=== PATIENT | female | born 1985 | race Two or more races ===

== ENCOUNTER 2025-01-19 07:51 | Inpatient (IN) | payer MEDICAID ==
[2025-01-17 14:30] LABS: Hematocrit 41.0 % (36.0-46.0); Hemoglobin 13.8 g/dL (12.2-16.2); Mean Corpuscular Hemoglobin 28.6 pg (28.0-32.0); Mean Corpuscular Volume 84.7 fL (80.0-100.0); Nucleated Red Blood Cells % 0.0 %
[2025-01-17 14:43] LABS: INR 1.01 (0.9-1.15); Partial Thromboplastin Time 26.9 SEC (24.5-34.5); Prothrombin Time 10.7 sec (9.3-11.8); Urine Protein, UAD Negative (Negative)
[2025-01-17 14:57] LABS: Alanine Aminotransferase 18 U/L (7-40); Albumin 4.6 g/dL (3.2-4.8); Alkaline Phosphatase 54 U/L (46-116); Anion Gap 10 (5-15); BUN/Creatinine Ratio 10.4 (10.0-20.0); Calcium 9.2 mg/dL (8.7-10.4); Carbon Dioxide 26 mmol/L (20-31); Chloride 103 mmol/L (98-107); Glucose 80 mg/dL (74-106); Potassium 3.9 mmol/L (3.5-5.1); Sodium 139 mmol/L (136-145); Total Protein 7.5 g/dL (5.7-8.2)
[2025-01-17 14:58] LABS: Bilirubin, Total 0.5 mg/dL (0.2-1.0)
[2025-01-17 14:59] LABS: Blood Urea Nitrogen 7 mg/dL (9-23)
[2025-01-17 15:45] VITALS: BP 122/74; PULSE 78; RESP 14; TEMP 99; O2SAT 78; O2SAT 98
[~2025-01-19] VITALS: Ht 160 cm; Wt 90.3 kg
[2025-01-19] MEDS: ceFAZolin 2 GM/D5W50ml 50 ML IV ONE (09:40)
[2025-01-19] MEDS ORDERED: PROPOFOL 10 MG/ML 20 ML IV ONE (10:44)
[2025-01-19] MEDS ORDERED: KETOROLAC TROMETH 30 MG/ML 1ML VIAL ONE (10:44)
[2025-01-19] MEDS ORDERED: MIDAZOLAM HCL 2MG/2ML 2ml VIAL (1mg/ml) ONE (10:44)
[2025-01-19] MEDS ORDERED: LIDOCAINE 2% (LOCAL ANESTH.) PF 5ml SDV ONE (10:44)
[2025-01-19] MEDS ORDERED: GLYCOPYRROLATE 0.2 MG/ML 1ML VIAL ONE (10:44)
[2025-01-19] MEDS ORDERED: fentaNYL CITRATE 100 MCG/2 ML VL ONE (10:44)
[2025-01-19] MEDS ORDERED: ONDANSETRON HCL 4 MG/2 ML VIAL ONE (10:44)
[2025-01-19] MEDS ORDERED: HYDROmorphone HCL 2 MG/ML VL/or syr ONE (10:44)
[2025-01-19] MEDS: LIDOCAINE W/ EPINEPHRINE 1% 20ML VIAL ONE (12:00)
[2025-01-19] MEDS: BUPIVACAINE 0.25% INJ 50ML VIAL ONE (12:00)
[2025-01-19] MEDS: SOD CHL 0.45% WITH 20MEQ KCL 1,000 ML IV SCH (12:30)
[2025-01-19 12:42] VITALS: PULSE 100; RESP 11; O2SAT 98
[2025-01-19] MEDS ORDERED: ONDANSETRON HCL 4 MG/2 ML VIAL IV PRN (13:00)
[2025-01-19] MEDS: ACETAMINOPHEN IV 1000 MG/100ML (10MG/ML) IV ONE (13:00)
[2025-01-19] MEDS ORDERED: NITROGLYCERIN 0.4 MG SL TAB SL PRN (13:15)
[2025-01-19] MEDS ORDERED: MORPHINE SULFATE INJ 2 MG/ml SYRG IV PRN (13:15)
--- NOTE | 2025-01-19 13:33 | DVHOP ---
DATE OF SURGERY: 01/19/2025 PREOPERATIVE DIAGNOSES: * Cholelithiasis. * Cholecystitis. POSTOPERATIVE DIAGNOSES: * Cholelithiasis. * Cholecystitis. SURGEON: Zain Rojas MD HEAD CAGER SURGEON: Nain Sanchez NP ANESTHESIA: General endotracheal. ANESTHESIOLOGIST: Dr. Thompson. PROCEDURES: * Laparoscopy. * Laparoscopic cholecystectomy. DESCRIPTION OF PROCEDURE: Under general endotracheal anesthesia with the patient's skin prepped and draped, a supraumbilical incision was made and Veress needle inserted into the peritoneal cavity by the hanging drop technique in order to establish pneumoperitoneum to 15 mmHg pressure by insufflation with carbon dioxide. With the abdomen fully distended, the needle was removed and replaced with a 5 mm trocar port through which a 0-degree viewing laparoscope was inserted and under direct vision, 5 and 10 mm ports inserted through the right anterior axillary line at the level of the umbilicus and through the subxiphoid midline skin respectively. Instrumentation was then introduced. Laparoscopy was conducted and revealed no unexpected pathology on the serosal surfaces visualized. The gallbladder was densely distended and was aspirated of bile and contained numerous visible stones through the wall of the gallbladder. The gallbladder was then placed on tension cephalad. The cystic duct and cystic artery were identified, circumferentially dissected, skeletonized, and traced into the hepatocystic triangle to minimize the potential for inadvertent injury to the common bile duct. The cystic duct and cystic artery were then divided between metallic clips close to the gallbladder and subsequently, the gallbladder was resected from its almost entirely intrahepatic position. Due to the intrahepatic nature of the gallbladder, there was some denuding of the liver parenchyma for which reason ultimately a 10 mm Erasmo-Sandoval drain was placed underneath the right lobe of the liver and exteriorized through the 5 mm port site. The gallbladder then was fully mobilized and placed into a specimen extraction bag, which was withdrawn from the peritoneal cavity through the 10 mm subxiphoid port site. The right upper quadrant was profusely irrigated. Irrigant was aspirated. Hemostasis was meticulously accomplished and found to be complete at the termination of the procedure. There was no evidence of bleeding from either the port sites or from the liver bed. The subhepatic space having been drained by the 10 mm drain, instrumentation was withdrawn. Pneumoperitoneum was evacuated. Fascia defect closed using 0 Vicryl. The wounds were approximated using Monocryl sutures and Dermabond glue with Steri-Strips. The patient remained stable throughout the procedure, left the operating room following an accurate needle and sponge count. The patient's was thoroughly informed in the waiting area. MD VESNA Martinez/CANDICE TID: [id number] RECEIPT: [id number]
[2025-01-19] MEDS ORDERED: ceFAZolin 1GM/50ML 50 ML IV SCH (14:00)
[2025-01-19] MEDS: diphenhdrAMINE HCL 50 MG/1 ML VL IV ONE (14:02)
[2025-01-19] MEDS: diphenhdrAMINE HCL 50 MG/1 ML VL ONE (14:03)
[2025-01-19] MEDS ORDERED: HYDROcodone-ACET 5/325MG TAB PO PRN (14:45)
--- NOTE | 2025-01-19 14:45 | DVHHP2 ---
Review of Systems Allergies: Coded Allergies: NO KNOWN ALLERGIES (Unverified , 01/18/25) Medications Current Medications Medications Dose Ordered Sig/Johnny Route Start Time Stop Time Status Last Admin Dose Admin Potassium Chloride/Sodium Chloride 1,000 ml @ 100 mls/hr Q10H IV 01/19/25 12:30 Cefazolin Sodium 50 ml @ 100 mls/hr Q8HR IV 01/19/25 14:00 Metronidazole 100 ml @ 100 mls/hr Q8HR IV 01/19/25 14:00 Hydromorphone HCl 1 mg Q3HPRN PRN IV 01/19/25 12:30 Nitroglycerin 0.4 mg Q5MINP PRN SL 01/19/25 13:15 Morphine Sulfate 2 mg Q30M PRN IV 01/19/25 13:15 Exam Vital Signs Vital Signs Date Time Temp Pulse Resp B/P (MAP) Pulse Ox O2 Delivery O2 Flow Rate FiO2 01/19/25 10: 97.8 64 17 126/86 (99) 99 97.8 Labs/Xrays Labs Test 01/17/25 14:20 Range/Units White Blood Count 8.5 4.4-10.8 10^3/uL Red Blood Count 4.84 4.0-5.20 10^6/uL Hemoglobin 13.8 12.2-16.2 g/dL Hematocrit 41.0 36.0-46.0 % Mean Corpuscular Volume 84.7 80.0-100.0 fL Mean Corpuscular Hemoglobin 28.6 28.0-32.0 pg Mean Corpuscular Hemoglobin Concent 33.7 32.0-36.0 g/dL Red Cell Distribution Width 12.7 11.8-14.3 % Platelet Count 322 140-450 10^3/uL Mean Platelet Volume 7.8 6.9-10.8 fL Neutrophils (%) (Auto) 56.2 37.0-80.0 % Lymphocytes (%) (Auto) 37.2 10.0-50.0 % Monocytes (%) (Auto) 4.5 0.0-12.0 % Eosinophils (%) (Auto) 1.5 0.0-7.0 % Basophils (%) (Auto) 0.6 0.0-2.0 % Neutrophils # (Auto) 4.8 1.6-8.6 10 ^3/uL Lymphocytes # (Auto) 3.2 0.4-5.4 10 ^3/uL Monocytes # (Auto) 0.4 0-1.3 10 ^3/uL Eosinophils # (Auto) 0.1 0-0.8 10 ^3/uL Basophils # (Auto) 0 0-0.2 10 ^3/uL Nucleated Red Blood Cells 0.0 % Prothrombin Time 10.7 9.3-11.8 sec Prothrombin Time INR 1.01 0.9-1.15 Activated Partial Thromboplast Time 26.9 24.5-34.5 SEC Urine Color Light-yellow Yellow Urine Clarity Turbid H Clear Urine pH 5.5 5.0-9.0 Urine Specific [place] 1.012 1.001-1.035 Urine Protein Negative Negative Urine Ketones 1+ H Negative Urine Blood Trace H Negative /uL Urine Nitrite Negative Negative Urine Bilirubin Negative Negative Urine Urobilinogen Normal Negative mg/dL Urine Leukocyte Esterase 1+ Negative /uL Urine RBC 1 0 - 4 /hpf Urine Microscopic WBC 1 0-5 /HPF Urine Squamous Epithelial Cells Mod <5 /hpf Urine Bacteria None seen None Seen /hpf Urine Glucose Normal Normal mg/dL Urine Test Negative Negative Sodium Level 139 136-145 mmol/L Potassium Level 3.9 3.5-5.1 mmol/L Chloride Level 103 98-107 mmol/L Carbon Dioxide Level 26 20-31 mmol/L Anion Gap 10 5-15 Blood Urea Nitrogen 7 L 9-23 mg/dL Creatinine 0.67 0.550-1.02 mg/dL Glomerular Filtration Rate Calc 113 >90 mL/min BUN/Creatinine Ratio 10.4 10.0-20.0 Serum Glucose 80 74-106 mg/dL Calcium Level 9.2 8.7-10.4 mg/dL Total Bilirubin 0.5 0.2-1.0 mg/dL Aspartate Amino Transferase (AST) 20 13-40 U/L Alanine Aminotransferase (ALT) 18 7-40 U/L Alkaline Phosphatase 54 46-116 U/L Total Protein 7.5 5.7-8.2 g/dL Albumin 4.6 3.2-4.8 g/dL SEPSIS Sepsis Screen Physician Orders To Pacu For Recovery (01/19/25 12:25) Oxygen Via Cool Mist Mask (01/19/25 12:25) Abdominal Binder (01/19/25 12:25) Isaac To Bulb Suction (01/19/25 12:25) Clear Liq Diet (01/19/25 Lunch) Bilirubin, Total (01/20/25 04:00) Incentive Spirometry Q 1hr (01/19/25 12:25) Ambulate Every 4hours Q4H (01/19/25 12:25) Page Hospitalist For Admission (01/19/25 12:25) Sod Chl 0.45% With 20meq Kcl (01/19/25 12:30) Cefazolin 1gm/50ml (Ancef) (01/19/25 14:00) Metronidazole 500mg/100ml (Flagyl 500mg/ (01/19/25 14:00) Hydromorphone Injection (Dilaudid Inject (01/19/25 12:30) Oxygen By Face Mask (01/19/25 12:48) On Site Wastewater Systems Technician (01/19/25 12:48) Notify Anesth. For Changes: (01/19/25 12:48) Pulse Ox Assessment (01/19/25 12:48) May Have Head Of Bed Up (01/19/25 12:48) Continue Present Iv (01/19/25 12:48) Discharge To Room Per Criteria (01/19/25 12:48) Admit (01/19/25 13:07) Oxygen By Nasal Cannula (01/19/25 13:07) Nitroglycerin Sublingual (Ntrostat Subli (01/19/25 13:15) Morphine Sulfate Injection (01/19/25 13:15) Stat Ekg For Chest Pain (01/19/25 13:07) Notify Md Of Changes From Base (01/19/25 13:07) Emergency Dysrhythmia Protocol (01/19/25 13:07) Rhythm Strips Once Every Shift (01/19/25 13:07) Hydrocodone-Acet 5/325mg Tab ([place] 5/32 (01/19/25 14:45) Complete Blood Count (01/20/25 06:00) Comprehensive Metabolic Panel (01/20/25 06:00) Vital Signs Date Time Temp Pulse Resp B/P (MAP) Pulse Ox O2 Delivery O2 Flow Rate FiO2 01/19/25 10:25 97.8 64 17 126/86 (99) 99 97.8 Medications Medications Dose Ordered Sig/Johnny Route Start Time Stop Time Status Last Admin Dose Admin Bupivacaine HCl 50 ml STK-MED ONCE .ROUTE 01/19/25 10:57 01/19/25 10:53 DC 01/19/25 12:00 10 ML Lidocaine/ Epinephrine 20 ml STK-MED ONCE .ROUTE 01/19/25 10:57 01/19/25 10:53 DC 01/19/25 12:00 10 ML Assessment/Plan Assessment/Plan SEE DICTATED NOTE Plan discussed with: Patient My Orders Orders - RACHEL FRANKLIN MD Procedure Category Date Status Time Admit ADMIT 01/19/25 Transmitted 13:07 Oxygen By Nasal RT 01/19/25 Transmitted Cannula 13:07 Nitroglycerin PHA 01/19/25 In Process Sublingual (Ntrostat 13:15 Morphine Sulfate PHA 01/19/25 In Process Injection 13:15 Stat Ekg For Chest MARIE 01/19/25 In Process Pain 13:07 Notify Md Of Changes [facility] 01/19/25 In Process From Base 13:07 Emergency Dysrhythmia MARIE 01/19/25 In Process Protocol 13:07 Rhythm Strips Once [facility] 01/19/25 In Process Every Shift 13:07 Hydrocodone-Acet PHA 01/19/25 Verified 5/325mg Tab ([place] 14:45 Complete Blood Count LAB 01/20/25 Verified 06:00 Comprehensive LAB 01/20/25 Verified Metabolic Panel 06:00 Date of Service: Jan 19, 2025 Billing Provider: RACHEL FRANKLIN MD Common Visit Codes: [id number] INP/OBS CARE (HIGH) RACHEL FRANKLIN MD Jan 19, 2025 14:44
--- NOTE | 2025-01-19 14:59 | DVHHP ---
ADMIT DATE: 01/19/2025 HISTORY OF PRESENT ILLNESS: The patient is a 39-year-old lady who underwent laparoscopic cholecystectomy for cholelithiasis and chronic cholecystitis. The patient at this time denies any significant pain. No chest pain. No shortness of breath. No nausea or vomiting. REVIEW OF SYSTEMS: Review of rest systems otherwise currently negative. PAST MEDICAL HISTORY: No significant illness in the past. MEDICATIONS: She takes no medicine on a regular basis. ALLERGIES: No known drug allergies. SOCIAL HISTORY: Denies smoking or alcohol. FAMILY HISTORY: Negative. PHYSICAL EXAMINATION: GENERAL: The patient is awake and alert. VITAL SIGNS: Temperature 97.8, pulse 64 per minute, blood pressure 126/86. SHEENT: Unremarkable. There is no JVD. No pedal edema. LUNGS: Equal bilaterally. No added sounds. CARDIOVASCULAR: S1, S2 is regular without murmurs. ABDOMEN: Soft. Bowel sounds are hypoactive. NEUROLOGICAL: Nonfocal. MUSCULOSKELETAL: Normal. ASSESSMENT AND PLAN: * Obesity. * Status post laparoscopic cholecystectomy for cholelithiasis and chronic cholecystitis. The patient will be placed on IV fluids along with pain medications. MD TOBIAS Luna/PEPPER TID: [id number] RECEIPT: [id number]
[2025-01-19] MEDS: FAMOTIDINE (10MG/ML) 2ML VL IV ONE ×2 (15:01→15:02)
[2025-01-19] MEDS: HYDROmorphone HCL 2 MG/ML VL/or syr IV PRN ×2 (15:29→19:24)
[2025-01-19 15:56] VITALS: PULSE 61; RESP 18; O2SAT 95
[2025-01-19] MEDS: ceFAZolin 1GM/50ML 50 ML IV SCH (19:01)
[2025-01-19 20:00] VITALS: PULSE 65; RESP 16
[2025-01-19 21:00] VITALS: BP 132/70; PULSE 65; RESP 20; TEMP 98.4; O2SAT 96
[2025-01-20 01:00] VITALS: BP 108/64; PULSE 63; RESP 18; TEMP 97.9; O2SAT 94
[2025-01-20 05:00] VITALS: BP 112/64; PULSE 66; RESP 18; TEMP 98; O2SAT 95
[2025-01-20 06:27] LABS: Hematocrit 38.3 % (36.0-46.0); Hemoglobin 12.9 g/dL (12.2-16.2); Mean Corpuscular Hemoglobin 28.5 pg (28.0-32.0); Mean Corpuscular Volume 84.6 fL (80.0-100.0); Nucleated Red Blood Cells % 0.0 %
[2025-01-20 06:40] LABS: Alanine Aminotransferase 43 U/L (7-40); Albumin 3.8 g/dL (3.2-4.8); Alkaline Phosphatase 49 U/L (46-116); Anion Gap 9 (5-15); BUN/Creatinine Ratio 11.1 (10.0-20.0); Bilirubin, Total 0.5 mg/dL (0.2-1.0); Blood Urea Nitrogen 6 mg/dL (9-23); Calcium 8.8 mg/dL (8.7-10.4); Carbon Dioxide 25 mmol/L (20-31); Chloride 106 mmol/L (98-107); Glucose 104 mg/dL (74-106); Potassium 4.1 mmol/L (3.5-5.1); Sodium 140 mmol/L (136-145); Total Protein 6.4 g/dL (5.7-8.2)
[2025-01-20 08:00] VITALS: PULSE 58; RESP 16; O2SAT 96
[2025-01-20 08:32] VITALS: BP 123/72; PULSE 58; RESP 16; TEMP 97.5; O2SAT 96
--- NOTE | 2025-01-20 12:28 | DVHDS2 ---
Discharge Summary Date of Admission Jan 19, 2025 at 13:07 Date of Discharge: Jan 20, 2025 Labs/Diagnostic Data: Laboratory Results Test 01/20/25 04:53 01/19/25 17:06 01/17/25 14:20 White Blood Count 16.6 10^3/uL (4.4-10.8) Red Blood Count 4.53 10^6/uL (4.0-5.20) Hemoglobin 12.9 g/dL (12.2-16.2) Hematocrit 38.3 % (36.0-46.0) Mean Corpuscular Volume 84.6 fL (80.0-100.0) Mean Corpuscular Hemoglobin 28.5 pg (28.0-32.0) Mean Corpuscular Hemoglobin Concent 33.7 g/dL (32.0-36.0) Red Cell Distribution Width 12.6 % (11.8-14.3) Platelet Count 312 10^3/uL (140-450) Mean Platelet Volume 8.3 fL (6.9-10.8) Neutrophils (%) (Auto) 82.8 % (37.0-80.0) Lymphocytes (%) (Auto) 13.2 % (10.0-50.0) Monocytes (%) (Auto) 3.9 % (0.0-12.0) Eosinophils (%) (Auto) 0.0 % (0.0-7.0) Basophils (%) (Auto) 0.1 % (0.0-2.0) Neutrophils # (Auto) 13.7 10 ^3/uL (1.6-8.6) Lymphocytes # (Auto) 2.2 10 ^3/uL (0.4-5.4) Monocytes # (Auto) 0.6 10 ^3/uL (0-1.3) Eosinophils # (Auto) 0 10 ^3/uL (0-0.8) Basophils # (Auto) 0 10 ^3/uL (0-0.2) Nucleated Red Blood Cells 0.0 % Sodium Level 140 mmol/L (136-145) Potassium Level 4.1 mmol/L (3.5-5.1) Chloride Level 106 mmol/L (98-107) Carbon Dioxide Level 25 mmol/L (20-31) Anion Gap 9 (5-15) Blood Urea Nitrogen 6 mg/dL (9-23) Creatinine 0.54 mg/dL (0.550-1.02) Glomerular Filtration Rate Calc 119 mL/min (>90) BUN/Creatinine Ratio 11.1 (10.0-20.0) Serum Glucose 104 mg/dL (74-106) Calcium Level 8.8 mg/dL (8.7-10.4) Total Bilirubin 0.5 mg/dL (0.2-1.0) Aspartate Amino Transferase (AST) 46 U/L (13-40) Alanine Aminotransferase (ALT) 43 U/L (7-40) Alkaline Phosphatase 49 U/L (46-116) Total Protein 6.4 g/dL (5.7-8.2) Albumin 3.8 g/dL (3.2-4.8) Prothrombin Time 10.7 sec (9.3-11.8) Prothrombin Time INR 1.01 (0.9-1.15) Activated Partial Thromboplast Time 26.9 SEC (24.5-34.5) Urine Color Light-yellow (Yellow) Urine Clarity Turbid (Clear) Urine pH 5.5 (5.0-9.0) Urine Specific Jean 1.012 (1.001-1.035) Urine Protein Negative (Negative) Urine Ketones 1+ (Negative) Urine Blood Trace /uL (Negative) Urine Nitrite Negative (Negative) Urine Bilirubin Negative (Negative) Urine Urobilinogen Normal mg/dL (Negative) Urine Leukocyte Esterase 1+ /uL (Negative) Urine RBC 1 /hpf (0 - 4) Urine Microscopic WBC 1 /HPF (0-5) Urine Squamous Epithelial Cells Mod /hpf (<5) Urine Bacteria None seen /hpf (None Seen) Urine Glucose Normal mg/dL (Normal) Urine Test Negative (Negative) Other Laboratory Tests 01/20/25 04:53 Brief Hx & Hospital Course: see dictated note Condition at Discharge: Good Final Diagnosis/Problems List lap travon Discharge Disposition: Home Discharge Instruct/Medications Diet: Regular Activity: No Restrictions, As Tolerated Follow Up/Referral: schedule appt with dr Rojas in 1 wk Medications: resume home meds script to pharmacy No Active Prescriptions or Reported Meds Discharge Statement: "Patient was advised to return to the ER or call 911 if any headaches, dizziness, shortness of breath, chest pain, abdominal pain, bleeding, fevers, or worsening of medical condition. Patient was counseled about treatment plan, medications, possible side effects, patientverbalized understanding. All questions were answered to the best of my ability. This discharge took greater then 30 minutes in planning, reviewing documentation, counseling the patient, and discussing with other team members." ASSESSMENT ASSESSMENT Assessment stanley cool Date of Service: Jan 20, 2025 Billing Provider: RACHEL FRANKLIN MD Common Visit Codes: [id number] DISCH DAY >30min RACHEL FRANKLIN MD Jan 20, 2025 12:28
[2025-01-20] MEDS ORDERED: HYDR1TAB97 PO (12:30)
[2025-01-20] MEDS ORDERED: DOCU-94 PO (12:30)
[2025-01-20] MEDS ORDERED: CEPH500C PO (12:30)
[2025-01-20] MEDS ORDERED: DIPH25CA66 PO (12:35)
[2025-01-20] MEDS: diphenhdrAMINE HCL 50 MG/1 ML VL IV PRN (12:36)
--- NOTE | 2025-01-20 12:44 | DVHDS ---
DATE OF DISCHARGE: 01/20/2025 HISTORY OF PRESENT ILLNESS: The patient is a 39-year-old lady who is admitted after she underwent laparoscopic cholecystectomy for cholelithiasis and chronic cholecystitis. HOSPITAL COURSE: The patient did well postoperatively. The patient has been tolerating oral diet and has been cleared for discharge by Dr. Rojas. She will be discharged home to resume her home medications as well as to be on [place] p.r.n. for pain, Colace p.r.n. for constipation, and Keflex 500 mg t.i.d. for 7 days. She will follow up with Dr. Rojas in 1 week. FINAL DIAGNOSES: * Obesity. * Transaminitis. * Status post laparoscopic cholecystectomy for cholelithiasis and chronic cholecystitis. Time spent in discharge planning and review of plan with the patient and family at bedside was 37 minutes. MD TOBIAS Luna/MAYKEL TID: [id number] RECEIPT: [id number]
[2025-01-20 12:55] VITALS: BP_SYST 119; BP_SYST 123; BP_DIAS 72; BP_DIAS 78; PULSE 58; PULSE 66; RESP 16; TEMP 97.5; TEMP 97.6; O2SAT 96; O2SAT 97
[2025-01-20] MEDS ORDERED: SUCCINYLCHOLINE 20mg/ml 100mg/5ml SYRINGE IV ONE (12:57)
--- NOTE | 2025-01-20 13:01 | DVHPN2 ---
Subjective Date Seen: Jan 20, 2025 Post op day Post op day: 1 Patient reports: No new complaints Nursing reports: No new complaints General: Normal HNT: Normal Cardiovascular: Normal Respiratory: Normal Gastrointestinal: Normal Genitourinary: Normal Musculoskeletal: Normal Neurological: Normal Objective Vitals Vital Sign Date Time Temp Pulse Resp B/P (MAP) Pulse Ox O2 Delivery O2 Flow Rate FiO2 01/20/25 12:55 97.5 58 16 123/72 (89) 96 97.5 01/19/25 20:00 Room Air* 0 21 Total Intake and Output 01/19/25 01/19/25 01/20/25 15:00 23:00 07:00 Intake Total 100 ml 50 ml 1456 ml Output Total 30 ml Balance 70 ml 50 ml 1456 ml Medications Current Medications Medications Dose Ordered Sig/Johnny Route Start Time Stop Time Status Last Admin Dose Admin Potassium Chloride/Sodium Chloride 1,000 ml @ 100 mls/hr Q10H IV 01/19/25 12:30 01/20/25 10:09 100 MLS/HR Metronidazole 100 ml @ 100 mls/hr Q8HR IV 01/19/25 14:00 01/20/25 05:14 100 MLS/HR Hydromorphone HCl 1 mg Q3HPRN PRN IV 01/19/25 12:30 01/20/25 10:00 1 MG Nitroglycerin 0.4 mg Q5MINP PRN SL 01/19/25 13:15 Morphine Sulfate 2 mg Q30M PRN IV 01/19/25 13:15 Acetaminophen/ Hydrocodone Bitart 1 tab Q6HPRN PRN PO 01/19/25 14:45 Cefazolin Sodium 50 ml @ 100 mls/hr Q8HR IV 01/19/25 19:00 01/20/25 05:14 100 MLS/HR Diphenhydramine HCl 25 mg Q6HP PRN IV 01/20/25 11:30 01/20/25 12:36 25 MG General: Normal Head/Eyes: Normal ENT: Normal Neck: Normal Lungs: Normal Cardiovascular: Normal, Regular rate and rhythm Abdominal: Normal, Soft Skin: Normal Neurological: Normal, CNII-XII Intact Labs and Microbiology Laboratory Tests 01/20/25 04:53 Test 01/20/25 04:53 Range/Units Serum Glucose 104 74-106 mg/dL Ass/Plan Labs and/or images reviewed: Labs reviewed by me, Image(s) reviewed by me Assessment/Plan no new complaints serous sanguinous fluid in PAIGE 5cc abdomen soft non distended, appropriately tender denies nausea or vomiting wounds clean dry and intact Plan: advance diet as tolerated per surgery point of view ok to discharge patient to follow up in clinic in 1 week may shower in 48 hours Prognosis: Excellent Plan discussed with Dr. Rojas, patient Visit Coding Surgery Date of Service if different f: Jan 20, 2025 Billing Provider: BALA ROJAS MD Surgery Visit Codes: [id number] INP/OBS CARE(HIGH) BROCK BAUM NP Jan 20, 2025 13:01
[2025-01-20 15:27] VITALS: BP 119/78; PULSE 66; RESP 16; TEMP 97.6; O2SAT 97
[2025-01-21 10:24] LABS: Hepatitis C Antibody Negative (Negative)
[2025-01-21 10:29] LABS: Hepatitis B Surface Antigen Negative (Negative)
== END 2025-01-20 16:27 | disposition home or self-care (01) | DRG 263 ==
LOC: SUR 07:51 → OVERFLOW 13:07 → WEST WING 15:45
PROVIDERS: ADMIT Internal Medicine; ATTEND Internal Medicine
PROC: 0FT44ZZ Resection of Gallbladder, Percutaneous Endoscopic Approach (ICD-10-PCS; principal; 2025-01-19 11:28)
DX: K80.10 Calculus of gallbladder with chronic cholecystitis without obstruction (principal); E66.9 Obesity, unspecified; R74.01 Elevation of levels of liver transaminase levels; K59.00 Constipation, unspecified; Z68.32 Body mass index [BMI] 32.0-32.9, adult; Z79.899 Other long term (current) drug therapy
CPT/HCPCS: 36415; 80053; 81001; 81025; 85025; 85610; 85730; 86803; 86850; 86900; 86901; 87340; G0378; J1100; J1885; J2003; J2250; J2405; J2704; J3490